=== PATIENT | male | born 1950 | race African-American/Black ===

== ENCOUNTER 2019-05-26 18:47 | Emergency (ER) | payer MEDICARE, OTHER ==
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
[2019-05-26] MEDS ORDERED: LIDOCAINE 1%/EPINEPHRINE INJ 20 ML VIAL INJ ONE (20:33)
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
[2019-05-26 22:19] VITALS: BP 173/73
== END 2019-05-26 22:00 | disposition home or self-care (01) ==
LOC: ER 18:47
PROC: 0HQ1XZZ Repair Face Skin, External Approach (ICD-10-PCS; principal; 2019-05-26)
DX: S09.90XA Unspecified injury of head, initial encounter (principal); S01.81XA Laceration without foreign body of other part of head, initial encounter; V18.4XXA Pedal cycle driver injured in noncollision transport accident in traffic accident, initial encounter; Z88.8 Allergy status to other drugs, medicaments and biological substances; I10 Essential (primary) hypertension
CPT/HCPCS: 99283; 70450; 72125; 12013; J3490